=== PATIENT | female | born 1990 | race Caucasian/White ===

== ENCOUNTER 2016-09-09 06:48 | Emergency (ER) | payer MEDICAID ==
[~2016-09-09] VITALS: Ht 152.4 cm; Wt 57.4 kg
[~2016-09-09 06:48] MED LIST: ALBUTEROL MDI; BCP
[2016-09-09 06:54] VITALS: BP 111/69
[2016-09-09] MEDS ORDERED: IBUPROFEN 200 MG TABLET ONE (07:17)
[2016-09-09] MEDS ORDERED: IBUPROFEN 200 MG TABLET PO ONE (07:30)
[2016-09-09] MEDS ORDERED: [UNRECOGNIZED DRUG - REMARK] (07:47)
[2016-09-09] MEDS ORDERED: DIPH25CA35 PO (07:47)
== END 2016-09-09 08:55 | disposition home or self-care (01) ==
LOC: ED 08:40
DX: S63.521A Sprain of radiocarpal joint of right wrist, initial encounter (principal); J45.909 Unspecified asthma, uncomplicated; X50.9XXA Other and unspecified overexertion or strenuous movements or postures, initial encounter; Y93.89 Activity, other specified; Y92.828 Other wilderness area as the place of occurrence of the external cause; Y99.8 Other external cause status; Z87.440 Personal history of urinary (tract) infections; Z86.718 Personal history of other venous thrombosis and embolism
CPT/HCPCS: 29125

== ENCOUNTER 2016-12-22 20:06 | Emergency (ER) | payer MEDICAID ==
[~2016-12-22] VITALS: Ht 152.4 cm; Wt 55.2 kg
[~2016-12-22 20:06] MED LIST changes: +DIPH25CA35 PO; +[UNRECOGNIZED DRUG - REMARK]
[2016-12-22 20:08] VITALS: BP 107/65
[2016-12-22] MEDS ORDERED: IBUPROFEN 200 MG TABLET ONE (20:27)
[2016-12-22] MEDS ORDERED: IBUPROFEN 200 MG TABLET PO ONE (20:30)
== END 2016-12-22 21:51 | disposition home or self-care (01) ==
LOC: ED 21:40
DX: S40.012A Contusion of left shoulder, initial encounter (principal); S50.02XA Contusion of left elbow, initial encounter; S70.12XA Contusion of left thigh, initial encounter; S50.312A Abrasion of left elbow, initial encounter; V29.9XXA Motorcycle rider (driver) (passenger) injured in unspecified traffic accident, initial encounter; Y93.55 Activity, bike riding; Y92.488 Other paved roadways as the place of occurrence of the external cause; Y99.8 Other external cause status
CPT/HCPCS: 99284

== ENCOUNTER 2017-06-08 00:12 | Emergency (ER) | payer SELFPAY ==
[~2017-06-08] VITALS: Ht 152.4 cm; Wt 57.5 kg
[2017-06-08] MEDS ORDERED: DIPHENHYDRAMINE 50 MG/ML, 1ML ONE (00:58)
[2017-06-08] MEDS ORDERED: METOCLOPRAMIDE 5 MG/ML, 2ML ONE (00:59)
[2017-06-08] MEDS ORDERED: METOCLOPRAMIDE 5 MG/ML, 2ML IVPush ONE (01:00)
[2017-06-08] MEDS ORDERED: SODIUM CHLORIDE 0.9% 1,000ML IVBOLUS ONE (01:00)
[2017-06-08] MEDS ORDERED: SODIUM CHLORIDE FLUSH 10ML SYR IVF ONE (01:00)
[2017-06-08] MEDS ORDERED: DIPHENHYDRAMINE 50 MG/ML, 1ML IVPush ONE (01:00)
[2017-06-08 02:53] VITALS: BP 110/69
== END 2017-06-08 02:55 | disposition home or self-care (01) ==
LOC: ED 00:59
DX: G44.019 Episodic cluster headache, not intractable (principal); J45.909 Unspecified asthma, uncomplicated; Z90.49 Acquired absence of other specified parts of digestive tract
CPT/HCPCS: 70450; 96361; 96374; 96375; 99284; J1200; J2765; J7030

== ENCOUNTER 2017-11-06 23:56 | Emergency (ER) | payer SELFPAY ==
[~2017-11-06] VITALS: Ht 152.4 cm; Wt 61.1 kg
[2017-11-06 23:58] VITALS: BP 106/66
[2017-11-07 00:54] LABS: BASOPHILS # (AUTO) 0.06 x10^3/uL (0-0.1); BASOPHILS % (AUTO) 1 % (0-1); EOSINOPHILS # (AUTO) 0.67 x10^3/uL (0-0.4); EOSINOPHILS % (AUTO) 10 % (1-7); LYMPHOCYTES # (AUTO) 2.05 x10^3/uL (1-3.4); LYMPHOCYTES % (AUTO) 32 % (22-44); MD NO; MEAN CORPUSCULAR HEMOGLOBIN 28.7 pg (27.0-34.8); MEAN CORPUSCULAR HGB CONC 34.1 g/dL (32.4-35.8); MEAN CORPUSCULAR VOLUME 84.1 fL (80-100); MONOCYTES # (AUTO) 0.74 x10^3/uL (0.2-0.8); MONOCYTES % (AUTO) 11 % (2-9); NEUTROPHILS # (AUTO) 2.95 x10^3/uL (1.8-6.8); NEUTROPHILS % (AUTO) 46 % (42-75); PLATELET COUNT 410 x10^3/uL (130-400); RED BLOOD COUNT 4.11 x10^6/uL (3.82-5.3); RED CELL DISTRIBUTION WIDTH 13.1 % (9.6-15.2)
[2017-11-07 01:00] LABS: MICROSCOPIC AUTO
[2017-11-07 01:01] LABS: CULTURE INDICATED? YES
[2017-11-07 01:02] LABS: HCG UR SG 1.037 (1.003-1.030)
[2017-11-07 01:05] LABS: ALANINE AMINOTRANSFERASE 17 U/L (12-78); ALBUMIN 2.8 g/dL (3.4-5.0); ANION GAP 6 mmol/L (5-15); CALCIUM 8.4 mg/dL (8.5-10.1); CHLORIDE 108 mmol/L (98-107); CREATININE 0.88 mg/dL (0.55-1.02)
[2017-11-07 01:07] LABS: ALKALINE PHOSPHATASE 84 U/L (45-117); BILIRUBIN,TOTAL 0.7 mg/dL (0.2-1.0); TOTAL PROTEIN 6.9 g/dL (6.4-8.2)
[2017-11-07] MEDS ORDERED: IBUPROFEN 200 MG TABLET ONE (01:39)
[2017-11-07] MEDS ORDERED: IBUPROFEN 200 MG TABLET PO ONE (02:00)
== END 2017-11-07 01:53 | disposition home or self-care (01) ==
LOC: ED 11-07 00:42
DX: N30.90 Cystitis, unspecified without hematuria (principal); R42 Dizziness and giddiness; R51 Headache; Z86.718 Personal history of other venous thrombosis and embolism; Z90.89 Acquired absence of other organs
CPT/HCPCS: 36415; 76830; 80053; 81001; 81025; 83690; 85025; 87086; 99285

== ENCOUNTER 2018-01-25 23:45 | Emergency (ER) | payer SELFPAY ==
[2018-01-25 23:59] VITALS: BP 106/48
== END 2018-01-26 00:49 | disposition home or self-care (01) ==
LOC: ED 01-26 00:12
DX: H00.015 Hordeolum externum left lower eyelid (principal); J45.909 Unspecified asthma, uncomplicated
CPT/HCPCS: 99282

== ENCOUNTER 2018-09-13 02:57 | Emergency (ER) | payer SELFPAY ==
[~2018-09-13] VITALS: Ht 152.4 cm; Wt 66.7 kg
--- NOTE | 2018-09-13 03:26 | NUR ---
PT HAVING INTERMITTENT LOWER ABDOMINAL PAIN FOR A MONTH. PT REPORTS ONE EPISODE OF EMESIS TONIGHT FROM PAIN. MONITORS APPLIED, SIDERAILS UP X2, CALL LIGHT WITHIN REACH. URINE SAMPLE TAKEN TO LAB
--- NOTE | 2018-09-13 03:53 | NUR ---
PT RESTING ON GURNEY, MONITORS IN PLACE, CALL LIGHT WITHIN REACH. AWAITING URINE, LABS AND ULTRASOUND
--- NOTE | 2018-09-13 03:58 | NUR ---
PT TO ULTRASOUND
[2018-09-13 04:04] LABS: HCG UR SG 1.028 (1.003-1.030)
[2018-09-13 04:13] LABS: BASOPHILS # (AUTO) 0.05 x10^3/uL (0-0.1); BASOPHILS % (AUTO) 1 % (0-1); EOSINOPHILS # (AUTO) 0.26 x10^3/uL (0-0.4); EOSINOPHILS % (AUTO) 3 % (1-7); LYMPHOCYTES # (AUTO) 1.91 x10^3/uL (1-3.4); LYMPHOCYTES % (AUTO) 23 % (22-44); MD NO; MEAN CORPUSCULAR HEMOGLOBIN 28.1 pg (27.0-34.8); MEAN CORPUSCULAR HGB CONC 32.6 g/dL (32.4-35.8); MEAN CORPUSCULAR VOLUME 86.2 fL (80-100); MONOCYTES # (AUTO) 0.87 x10^3/uL (0.2-0.8); MONOCYTES % (AUTO) 10 % (2-9); NEUTROPHILS # (AUTO) 5.35 x10^3/uL (1.8-6.8); NEUTROPHILS % (AUTO) 63 % (42-75); PLATELET COUNT 475 x10^3/uL (130-400); RED BLOOD COUNT 4.33 x10^6/uL (3.82-5.3); RED CELL DISTRIBUTION WIDTH 13.7 % (9.6-15.2)
[2018-09-13 04:18] LABS: ALANINE AMINOTRANSFERASE 19 U/L (12-78); ALBUMIN 2.7 g/dL (3.4-5.0); ANION GAP 7 mmol/L (5-15); CALCIUM 7.9 mg/dL (8.5-10.1); CHLORIDE 107 mmol/L (98-107)
[2018-09-13 04:20] LABS: ALKALINE PHOSPHATASE 96 U/L (45-117); BILIRUBIN,TOTAL 0.4 mg/dL (0.2-1.0); TOTAL PROTEIN 6.9 g/dL (6.4-8.2)
[2018-09-13 04:31] LABS: CULTURE INDICATED? YES; MICROSCOPIC INDICATED
[2018-09-13 05:12] VITALS: BP 112/55
== END 2018-09-13 05:14 | disposition home or self-care (01) ==
LOC: ED 03:41
DX: R10.32 Left lower quadrant pain (principal); R10.31 Right lower quadrant pain; R10.2 Pelvic and perineal pain; J45.909 Unspecified asthma, uncomplicated
CPT/HCPCS: 36415; 76830; 80053; 81001; 81025; 83690; 85025; 87086; 99284